=== PATIENT | male | born 1960 | race Caucasian/White ===

== ENCOUNTER 2021-02-26 03:07 | Emergency (ER) | payer BC ==
[~2021-02-26] VITALS: Ht 188 cm; Wt 73.5 kg
[2021-02-26 03:14] VITALS: BP 189/84
[2021-02-26] MEDS ORDERED: oxyCODONE/APAP (5/325 MG) 1 UDTAB TABLET ONE (04:35)
[2021-02-26] MEDS ORDERED: oxyCODONE/APAP (5/325 MG) 1 UDTAB TABLET PO ONE (05:00)
--- NOTE | 2021-02-26 05:05 | NUR ---
CRUTCHES WITH TRAINING PROVIDED TO THE PATIENT. PATIENT IS STEADY WITH GAIT.
--- NOTE | 2021-02-26 05:11 | NUR ---
Patient discharged to home in stable condition. Written and verbal after care instructions given. Patient verbalizes understanding of instruction.
== END 2021-02-26 05:12 | disposition home or self-care (01) ==
LOC: ER 03:17
DX: S90.31XA Contusion of right foot, initial encounter (principal); W20.8XXA Other cause of strike by thrown, projected or falling object, initial encounter; Y93.89 Activity, other specified; Y92.89 Other specified places as the place of occurrence of the external cause; Y99.8 Other external cause status
CPT/HCPCS: 73630-TC